=== PATIENT | female | born 1940 | race Caucasian/White ===

== ENCOUNTER 2017-03-09 15:01 | Inpatient (IN) | payer OTHER, MEDICAID ==
[~2017-03-09] VITALS: Ht 167.6 cm; Wt 88.0 kg
[2017-03-09 15:01] VITALS: BP_SYST 144
[2017-03-09] MEDS ORDERED: LEVOFLOXACIN 500 MG/D5W 100 ML IV ONE (15:45)
[2017-03-09] MEDS ORDERED: NS 500 ML IV ONE (15:45)
[2017-03-09 15:57] LABS: BASOPHILS # (AUTO) 0.2 K/uL (0.0-0.2); BASOPHILS % (AUTO) 1.4 % (0.0-2.0); EOSINOPHILS # (AUTO) 0.2 K/uL (0.0-0.4); HEMOGLOBIN 11.9 g/dL (12.0-16.0); LYMPHOCYTES # (AUTO) 0.7 K/uL (1.0-5.5); LYMPHOCYTES % (AUTO) 4.1 % (20.5-51.5); MEAN CORPUSCULAR HEMOGLOBIN 32 pg (27-31); MEAN CORPUSCULAR HGB CONC 33 % (32-36); MEAN CORPUSCULAR VOLUME 96 fL (79.0-98.0); MONOCYTES # (AUTO) 0.2 K/uL (0.0-1.0); MONOCYTES % (AUTO) 0.9 % (1.7-9.3); NEUTROPHILS # (AUTO) 15.7 K/uL (1.8-7.7); NEUTROPHILS % (AUTO) 92.6 % (40.0-70.0); PLATELET COUNT (AUTO) 301 K/uL (130-430); RED BLOOD CELL COUNT(AUTO) 3.75 MIL/uL (4.2-6.2); RED CELL DISTRIBUTION WIDTH 15.8 % (9.0-15.0)
[2017-03-09 16:06] LABS: ANION GAP 7 (5-15); CALCIUM 8.7 mg/dL (8.4-11.0); CHLORIDE 106 mmol/L (98-107); CREATININE 1.38 mg/dL (0.55-1.30); GLUCOSE 135 mg/dL (70-99); POTASSIUM 5.3 mmol/L (3.5-5.1); SODIUM SERUM 141 mmol/L (136-145); UREA NITROGEN, BLOOD 28 mg/dL (8-21)
[2017-03-09 16:12] LABS: INR 1.1 (0.8-1.2); PROTHROMBIN TIME 11.5 SECS (9.5-12.5)
[2017-03-09 16:22] LABS: ALANINE AMINOTRANSFERASE 20 U/L (12-78); ALBUMIN 3.2 g/dL (3.4-4.8); ASPARTATE AMINOTRANSFERASE 31 U/L (10-37); LIPASE 185 U/L (73-393); TOTAL BILIRUBIN 0.9 mg/dL (0.0-1.0); TOTAL PROTEIN, SERUM 7.7 g/dL (6.4-8.3)
[2017-03-09 17:06] LABS: BILIRUBIN,URINE 1+ (NEGATIVE); BLOOD, URINE 3+ (NEGATIVE); CLARITY/URINE CLOUDY (CLEAR); COLOR,URINE RED (YELLOW); GLUCOSE,URINE NEGATIVE (NEGATIVE); KETONES,URINE NEGATIVE (NEGATIVE); LEUKOCYTE ESTERASE ,URINE 2+ (NEGATIVE); NITRITE, URINE POSITIVE (NEGATIVE); PROTEIN URINE 3+ (NEGATIVE)
[2017-03-09 17:11] LABS: BACTERIA,URINE MODERATE /HPF (None Seen); MUCUS,URINE None Seen /LPF (None Seen); RBC,URINE >100 /HPF (0-3); URINE AMORPHOUS URATE 2+ /HPF (None Seen); WBC,URINE >100 /HPF (0-3)
[2017-03-09] MEDS ORDERED: NACL 0.9% 1,000 ML IV ONE ×2 (18:15)
[2017-03-09] MEDS ORDERED: ONDANSETRON HCL 4 MG/2 ML VIAL IVP PRN (18:30)
[2017-03-09] MEDS ORDERED: ACETAMINOPHEN 500 MG TABLET PO PRN (18:30)
[2017-03-09] MEDS ORDERED: FLUT16SP16 NS (18:49)
[2017-03-09] MEDS ORDERED: CARB-60 PO (18:49)
[2017-03-09] MEDS ORDERED: ACET-2165 PO (18:49)
[2017-03-09] MEDS ORDERED: DIGO0.25 PO (18:49)
[2017-03-09] MEDS ORDERED: TRAM50TA92 PO (18:49)
[2017-03-09] MEDS ORDERED: PRAM0.122 PO (18:49)
[2017-03-09] MEDS ORDERED: POLY17PO4 PO (18:49)
[2017-03-09] MEDS ORDERED: MONT5TAB17 PO (18:49)
[2017-03-09] MEDS ORDERED: LORA10CA PO (18:49)
[2017-03-09] MEDS ORDERED: FLUT1DIS3 INH (18:49)
[2017-03-09] MEDS ORDERED: RIVA20TA PO (18:49)
[2017-03-09] MEDS ORDERED: ARIP5TAB10 PO (18:49)
[2017-03-09] MEDS ORDERED: MULT-1089 PO (18:49)
[2017-03-09] MEDS ORDERED: DOCU250C PO (18:49)
[2017-03-09 19:57] VITALS: BP_SYST 118
[2017-03-09] MEDS: NACL 0.9% 1,000 ML IV SCH (20:43)
[2017-03-09] MEDS ORDERED: ACETAMINOPHEN 325 MG TABLET PO PRN (21:30)
[2017-03-09] MEDS ORDERED: POLYETHYLENE GLYCOL 3350, 17 GM/ POWD.PACK PO PRN (21:30)
[2017-03-09] MEDS ORDERED: traMADol HCL HCL 50 MG TABLET (ULTRAM) PO PRN (21:30)
[2017-03-09] MEDS ORDERED: CARBIDOPA/LEVODOPA 10/100 MG TABLET PO ONE (22:00)
[2017-03-09] MEDS: DOCUSATE SODIUM 250 MG CAPSULE PO ONE ×2 (22:00→22:26)
[2017-03-09] MEDS ORDERED: MULTIVITAMINS TAB 1 TABLET PO ONE (22:00)
[2017-03-09] MEDS ORDERED: FLUTICASONE/VILANTEROL 1 EACH BLST.W.DEV INH ONE (22:00)
[2017-03-09] MEDS ORDERED: ARIPiprazole 5 MG TAB PO ONE (22:00)
[2017-03-09] MEDS ORDERED: FLUTICASONE PROPIONATE 50 mCg/SPRAY 16 GM NS ONE (22:00)
[2017-03-10 00:24] VITALS: BP_SYST 125
[2017-03-10 04:14] VITALS: BP_SYST 101
[2017-03-10 07:22] LABS: BASOPHILS % (AUTO) 0.2 % (0.0-2.0); EOSINOPHILS # (AUTO) 0.1 K/uL (0.0-0.4); EOSINOPHILS % (AUTO) 0.3 % (0.0-4.0); HEMATOCRIT 30.1 % (36-48); HEMOGLOBIN 9.9 g/dL (12.0-16.0); LYMPHOCYTES # (AUTO) 1.1 K/uL (1.0-5.5); LYMPHOCYTES % (AUTO) 6.6 % (20.5-51.5); MEAN CORPUSCULAR HEMOGLOBIN 32 pg (27-31); MEAN CORPUSCULAR HGB CONC 33 % (32-36); MEAN CORPUSCULAR VOLUME 96 fL (79.0-98.0); MONOCYTES % (AUTO) 5.8 % (1.7-9.3); NEUTROPHILS # (AUTO) 14.7 K/uL (1.8-7.7); NEUTROPHILS % (AUTO) 87.1 % (40.0-70.0); PLATELET COUNT (AUTO) 235 K/uL (130-430); RED BLOOD CELL COUNT(AUTO) 3.13 MIL/uL (4.2-6.2); RED CELL DISTRIBUTION WIDTH 15.9 % (9.0-15.0)
[2017-03-10 07:27] LABS: ANION GAP 4 (5-15); CALCIUM 8.2 mg/dL (8.4-11.0); CHLORIDE 112 mmol/L (98-107); CREATININE 1.23 mg/dL (0.55-1.30); GLUCOSE 140 mg/dL (70-99); POTASSIUM 4.9 mmol/L (3.5-5.1); SODIUM SERUM 141 mmol/L (136-145); UREA NITROGEN, BLOOD 31 mg/dL (8-21)
[2017-03-10 08:00] VITALS: BP_SYST 131
[2017-03-10 08:44] LABS: WHITE BLOOD COUNT (AUTO) 16.9 K/uL (4.8-10.8)
[2017-03-10] MEDS ORDERED: RIVAROXABAN 10 MG TABLET PO SCH (09:00)
[2017-03-10] MEDS: MULTIVITAMINS TAB 1 TABLET PO SCH (09:12)
[2017-03-10] MEDS: ARIPiprazole 5 MG TAB PO SCH (09:12)
[2017-03-10] MEDS: DOCUSATE SODIUM 250 MG CAPSULE PO SCH ×2 (09:12→21:28)
[2017-03-10] MEDS: FLUTICASONE/VILANTEROL 1 EACH BLST.W.DEV INH SCH (09:12)
[2017-03-10] MEDS: FLUTICASONE PROPIONATE 50 mCg/SPRAY 16 GM NS SCH (09:13)
[2017-03-10] MEDS: CARBIDOPA/LEVODOPA 10/100 MG TABLET PO SCH ×2 (09:13→21:28)
[2017-03-10] MEDS: NACL 0.9% 1,000 ML IV SCH (09:35)
[2017-03-10 12:13] VITALS: BP_SYST 104
[2017-03-10 16:22] VITALS: BP_SYST 101
[2017-03-10] MEDS ORDERED: LEVOFLOXACIN 500 MG/D5W 100 ML IV SCH (17:00)
[2017-03-10 19:40] VITALS: BP_SYST 120
[2017-03-11 00:16] VITALS: BP_SYST 124
[2017-03-11] MEDS: NACL 0.9% 1,000 ML IV SCH ×3 (01:08→22:31)
[2017-03-11 04:00] VITALS: BP_SYST 133
[2017-03-11 08:00] VITALS: BP_SYST 133
[2017-03-11] MEDS: MULTIVITAMINS TAB 1 TABLET PO SCH (09:00)
[2017-03-11] MEDS: DOCUSATE SODIUM 250 MG CAPSULE PO SCH ×2 (09:00→21:00)
[2017-03-11] MEDS: CARBIDOPA/LEVODOPA 10/100 MG TABLET PO SCH ×2 (09:00→22:30)
[2017-03-11] MEDS: ARIPiprazole 5 MG TAB PO SCH (09:00)
[2017-03-11] MEDS: FLUTICASONE/VILANTEROL 1 EACH BLST.W.DEV INH SCH (09:00)
[2017-03-11 11:24] LABS: HEMATOCRIT 29.2 % (36-48); HEMOGLOBIN 9.7 g/dL (12.0-16.0); MEAN CORPUSCULAR HEMOGLOBIN 32 pg (27-31); MEAN CORPUSCULAR HGB CONC 33 % (32-36); MEAN CORPUSCULAR VOLUME 96 fL (79.0-98.0); PLATELET COUNT (AUTO) 212 K/uL (130-430); RED BLOOD CELL COUNT(AUTO) 3.04 MIL/uL (4.2-6.2); RED CELL DISTRIBUTION WIDTH 15.5 % (9.0-15.0); WHITE BLOOD COUNT (AUTO) 13.8 K/uL (4.8-10.8)
[2017-03-11 11:27] LABS: ANION GAP 3 (5-15); CALCIUM 8.7 mg/dL (8.4-11.0); CHLORIDE 112 mmol/L (98-107); CREATININE 1.32 mg/dL (0.55-1.30); GLUCOSE 115 mg/dL (70-99); POTASSIUM 5.2 mmol/L (3.5-5.1); SODIUM SERUM 141 mmol/L (136-145); UREA NITROGEN, BLOOD 35 mg/dL (8-21)
[2017-03-11 12:00] LABS: BAND % (MANUAL) 13 % (0-6); BASOPHILS % (MANUAL) 0 % (0-2); EOSINOPHILS % (MANUAL) 0 % (0-7); LYMPHOCYTES % (MANUAL) 9 % (20-46); MONOCYTES % (MANUAL) 7 % (0-11)
[2017-03-11] MEDS ORDERED: LR 1,000 ML IV ONE (12:30)
[2017-03-11] MEDS ORDERED: fentaNYL CITRATE/PF 100 MCG/2 ML AMP IVP PRN (12:30)
[2017-03-11] MEDS ORDERED: DIPHENHYDRAMINE INJ 50 MG/ML VIAL IVP PRN (12:30)
[2017-03-11] MEDS ORDERED: NALBUPHINE HCL 10 MG/ML AMP IVP PRN (12:30)
[2017-03-11] MEDS ORDERED: NALOXONE HCL 0.4 MG/ML AMP (NARCAN) IVP PRN (12:30)
[2017-03-11] MEDS ORDERED: ePHEDrine sulfate 50 MG/ML VIAL IVP PRN (12:30)
[2017-03-11] MEDS ORDERED: ONDANSETRON HCL 4 MG/2 ML VIAL IVP PRN ×2 (12:30)
[2017-03-11] MEDS ORDERED: IOHEXOL 0 ML IV ONE ×2 (12:44→12:48)
[2017-03-11 12:51] VITALS: BP_SYST 133
[2017-03-11] MEDS: cefTRIAXone 1 GM in D5W 50 ML IV SCH (14:54)
[2017-03-11] MEDS: FLUTICASONE PROPIONATE 50 mCg/SPRAY 16 GM NS SCH (14:57)
[2017-03-11 17:48] VITALS: BP_SYST 126
[2017-03-11 22:44] VITALS: BP_SYST 119
[2017-03-12 04:12] VITALS: BP_SYST 122
[2017-03-12 08:03] LABS: ANION GAP 4 (5-15); CALCIUM 8.8 mg/dL (8.4-11.0); CHLORIDE 110 mmol/L (98-107); CREATININE 1.31 mg/dL (0.55-1.30); GLUCOSE 127 mg/dL (70-99); PHOSPHORUS 3.9 mg/dL (2.7-4.5); SODIUM SERUM 140 mmol/L (136-145); UREA NITROGEN, BLOOD 41 mg/dL (8-21)
[2017-03-12 08:04] LABS: POTASSIUM 5.9 mmol/L (3.5-5.1)
[2017-03-12 08:21] LABS: BASOPHILS # (AUTO) 0.1 K/uL (0.0-0.2); BASOPHILS % (AUTO) 0.7 % (0.0-2.0); EOSINOPHILS % (AUTO) 0.1 % (0.0-4.0); HEMATOCRIT 28.3 % (36-48); HEMOGLOBIN 9.1 g/dL (12.0-16.0); LYMPHOCYTES # (AUTO) 1.1 K/uL (1.0-5.5); LYMPHOCYTES % (AUTO) 10.2 % (20.5-51.5); MEAN CORPUSCULAR HEMOGLOBIN 31 pg (27-31); MEAN CORPUSCULAR HGB CONC 32 % (32-36); MEAN CORPUSCULAR VOLUME 97 fL (79.0-98.0); MONOCYTES # (AUTO) 0.5 K/uL (0.0-1.0); MONOCYTES % (AUTO) 4.7 % (1.7-9.3); NEUTROPHILS # (AUTO) 9.4 K/uL (1.8-7.7); NEUTROPHILS % (AUTO) 84.3 % (40.0-70.0); PLATELET COUNT (AUTO) 206 K/uL (130-430); RED BLOOD CELL COUNT(AUTO) 2.93 MIL/uL (4.2-6.2); RED CELL DISTRIBUTION WIDTH 15.7 % (9.0-15.0); WHITE BLOOD COUNT (AUTO) 11.1 K/uL (4.8-10.8)
[2017-03-12 08:59] VITALS: BP_SYST 120
[2017-03-12] MEDS ORDERED: SODIUM POLYSTYRENE SULFONATE 15 GM/60 ML UDBTL PO ONE (10:00)
[2017-03-12] MEDS: DOCUSATE SODIUM 250 MG CAPSULE PO SCH ×2 (10:48→20:46)
[2017-03-12] MEDS: CARBIDOPA/LEVODOPA 10/100 MG TABLET PO SCH ×2 (10:48→20:46)
[2017-03-12] MEDS: ARIPiprazole 5 MG TAB PO SCH (10:49)
[2017-03-12] MEDS: MULTIVITAMINS TAB 1 TABLET PO SCH (10:49)
[2017-03-12] MEDS: FLUTICASONE/VILANTEROL 1 EACH BLST.W.DEV INH SCH (10:50)
[2017-03-12] MEDS: FLUTICASONE PROPIONATE 50 mCg/SPRAY 16 GM NS SCH (10:50)
[2017-03-12] MEDS: cefTRIAXone 1 GM in D5W 50 ML IV SCH (11:41)
[2017-03-12 12:14] VITALS: BP_SYST 126
[2017-03-12 12:30] VITALS: BP_SYST 128
[2017-03-12 16:20] VITALS: BP_SYST 122
[2017-03-12] MEDS: NACL 0.9% 1,000 ML IV SCH (18:11)
[2017-03-12 20:00] VITALS: BP_SYST 125
[2017-03-13 00:11] VITALS: BP_SYST 114
[2017-03-13] MEDS ORDERED: VANCOMYCIN HCL 1000 MG/VIAL IV ONE (01:53)
[2017-03-13] MEDS ORDERED: VANCOMYCIN HCL 500 MG/VIAL IV ONE (01:54)
[2017-03-13] MEDS ORDERED: VANCOMYCIN HCL 1,250 MG in NS 250 ML IV ONE (02:00)
[2017-03-13] MEDS: NACL 0.9% 1,000 ML IV SCH ×2 (02:38→20:05)
[2017-03-13 05:57] VITALS: BP_SYST 129
[2017-03-13 08:05] VITALS: BP_SYST 116
[2017-03-13 08:10] LABS: BASOPHILS # (AUTO) 0.2 K/uL (0.0-0.2); BASOPHILS % (AUTO) 1.7 % (0.0-2.0); EOSINOPHILS # (AUTO) 0.1 K/uL (0.0-0.4); EOSINOPHILS % (AUTO) 0.8 % (0.0-4.0); HEMATOCRIT 28.5 % (36-48); HEMOGLOBIN 9.2 g/dL (12.0-16.0); LYMPHOCYTES # (AUTO) 1.2 K/uL (1.0-5.5); LYMPHOCYTES % (AUTO) 10.6 % (20.5-51.5); MEAN CORPUSCULAR HEMOGLOBIN 31 pg (27-31); MEAN CORPUSCULAR HGB CONC 32 % (32-36); MEAN CORPUSCULAR VOLUME 97 fL (79.0-98.0); MONOCYTES # (AUTO) 0.6 K/uL (0.0-1.0); MONOCYTES % (AUTO) 5.8 % (1.7-9.3); NEUTROPHILS # (AUTO) 8.8 K/uL (1.8-7.7); NEUTROPHILS % (AUTO) 81.1 % (40.0-70.0); PLATELET COUNT (AUTO) 236 K/uL (130-430); RED BLOOD CELL COUNT(AUTO) 2.95 MIL/uL (4.2-6.2); RED CELL DISTRIBUTION WIDTH 15.4 % (9.0-15.0); WHITE BLOOD COUNT (AUTO) 10.9 K/uL (4.8-10.8)
[2017-03-13 08:20] LABS: ANION GAP 3 (5-15); CALCIUM 8.1 mg/dL (8.4-11.0); CHLORIDE 107 mmol/L (98-107); CREATININE 1.29 mg/dL (0.55-1.30); GLUCOSE 97 mg/dL (70-99); POTASSIUM 4.2 mmol/L (3.5-5.1); SODIUM SERUM 140 mmol/L (136-145); UREA NITROGEN, BLOOD 44 mg/dL (8-21)
[2017-03-13] MEDS: MULTIVITAMINS TAB 1 TABLET PO SCH (10:28)
[2017-03-13] MEDS: FLUTICASONE PROPIONATE 50 mCg/SPRAY 16 GM NS SCH (10:28)
[2017-03-13] MEDS: ARIPiprazole 5 MG TAB PO SCH (10:28)
[2017-03-13] MEDS: FLUTICASONE/VILANTEROL 1 EACH BLST.W.DEV INH SCH (10:28)
[2017-03-13] MEDS: CARBIDOPA/LEVODOPA 10/100 MG TABLET PO SCH ×2 (10:29→20:05)
[2017-03-13] MEDS: DOCUSATE SODIUM 250 MG CAPSULE PO SCH ×2 (10:29→20:05)
[2017-03-13] MEDS: cefTRIAXone 1 GM in D5W 50 ML IV SCH (12:05)
[2017-03-13 12:54] VITALS: BP_SYST 105
[2017-03-13 16:09] VITALS: BP_SYST 126
[2017-03-13 20:02] VITALS: BP_SYST 119
[2017-03-14 01:03] VITALS: BP_SYST 126
[2017-03-14] MEDS ORDERED: VANCOMYCIN HCL 1,000 MG in NS 250 ML IV SCH (02:00)
[2017-03-14 05:30] VITALS: BP_SYST 130
[2017-03-14 08:44] VITALS: BP_SYST 117
[2017-03-14] MEDS: CARBIDOPA/LEVODOPA 10/100 MG TABLET PO SCH (10:04)
[2017-03-14] MEDS: ARIPiprazole 5 MG TAB PO SCH (10:04)
[2017-03-14] MEDS: MULTIVITAMINS TAB 1 TABLET PO SCH (10:04)
[2017-03-14] MEDS: DOCUSATE SODIUM 250 MG CAPSULE PO SCH (10:04)
[2017-03-14] MEDS: FLUTICASONE PROPIONATE 50 mCg/SPRAY 16 GM NS SCH (10:04)
[2017-03-14] MEDS: FLUTICASONE/VILANTEROL 1 EACH BLST.W.DEV INH SCH (10:05)
[2017-03-14 12:25] VITALS: BP_SYST 125
[2017-03-14] MEDS: cefTRIAXone 1 GM in D5W 50 ML IV SCH (12:58)
[2017-03-14 15:12] VITALS: BP_SYST 125
== END 2017-03-14 15:40 | DRG 872 ==
LOC: SED 15:01 → STU 18:31 → SMU 19:38 → STU 19:54 → SMU 03-11 19:18
PROVIDERS: ADMIT Family Medicine; ATTEND Family Medicine
PROC: 0T778DZ Dilation of Left Ureter with Intraluminal Device, Via Natural or Artificial Opening Endoscopic (ICD-10-PCS; principal; 2017-03-11 11:00)
DX: A41.9 Sepsis, unspecified organism (principal); N13.30 Unspecified hydronephrosis; N12 Tubulo-interstitial nephritis, not specified as acute or chronic; I48.2 Chronic atrial fibrillation; G20 Parkinson's disease; F29 Unspecified psychosis not due to a substance or known physiological condition; Z79.01 Long term (current) use of anticoagulants; E87.5 Hyperkalemia; J44.9 Chronic obstructive pulmonary disease, unspecified; N20.0 Calculus of kidney; R31.0 Gross hematuria; Z74.01 Bed confinement status; Z88.0 Allergy status to penicillin; Z90.710 Acquired absence of both cervix and uterus; F02.80 Dementia in other diseases classified elsewhere, unspecified severity, without behavioral disturbance, psychotic disturbance, mood disturbance, and anxiety; Z79.899 Other long term (current) drug therapy
CPT/HCPCS: 36415; 71010; 76000; 80048; 80053; 81000-TC; 83605; 83690-TC; 83735-TC; 84100-TC; 85007; 85025; 85027; 85610-TC; 87040-TC; 87081; 87086; 87186-TC; 93005; 96361; 96365; 99285; C1758; C1769; C2625; J0696; J1956; J3370; J7030; J7040; J7050; J7060; Q9967

== ENCOUNTER 2017-09-30 09:31 | Outpatient (CLI) | payer OTHER, MEDICAID ==
[~2017-09-30 09:31] MED LIST: ACET-2165 PO; ARIP5TAB10 PO; CARB-60 PO; DIGO0.25 PO; DOCU250C PO; FLUT16SP16 NS; FLUT1DIS3 INH; LORA10CA PO; MONT5TAB17 PO; MULT-1089 PO; POLY17PO4 PO; PRAM0.122 PO; RIVA20TA PO; TRAM50TA92 PO
== END 2017-09-30 17:18 | disposition home or self-care (01) ==
LOC: SCT 09:31
PROVIDERS: ATTEND Family Medicine
DX: N20.0 Calculus of kidney (principal); I51.7 Cardiomegaly; I70.0 Atherosclerosis of aorta; K57.90 Diverticulosis of intestine, part unspecified, without perforation or abscess without bleeding; Z90.49 Acquired absence of other specified parts of digestive tract

== ENCOUNTER 2018-06-06 08:30 | Outpatient (CLI) | payer OTHER, MEDICAID ==
[~2018-06-06 08:30] MED LIST changes: -DOCU250C PO; +DOCU250C14 PO
== END 2018-06-06 20:20 | disposition home or self-care (01) ==
LOC: SCT 08:30
PROVIDERS: ATTEND Family Medicine
DX: K57.90 Diverticulosis of intestine, part unspecified, without perforation or abscess without bleeding (principal); N20.0 Calculus of kidney; Z90.49 Acquired absence of other specified parts of digestive tract

== ENCOUNTER 2018-11-11 14:24 | Inpatient (IN) | payer OTHER, MEDICAID ==
[~2018-11-11] VITALS: Ht 170.2 cm; Wt 102.1 kg
[2018-11-11] VITALS (9 sets, daily range): BP systolic 96–159
[2018-11-11] MEDS ORDERED: NACL 0.9% 1,000 ML IV ONE (14:35)
[2018-11-11] MEDS ORDERED: ALBUTEROL SULFATE 0.083% 2.5 MG/3 ML VIAL.NEB IH ONE ×2 (14:45→16:00)
[2018-11-11] MEDS ORDERED: IPRATROPIUM BROM 0.5 MG/2.5 ML VIAL.NEB (ATROVENT) IH ONE ×2 (14:45→16:00)
[2018-11-11] MEDS ORDERED: NS 1000 ML IV.SOLN IV ONE (14:45)
[2018-11-11] MEDS ORDERED: methylPREDNISolone SOD SUCC/PF 62.5 MG/ML VIAL IVP ONE (14:45)
[2018-11-11 15:24] LABS: CALCIUM 8.7 mg/dL (8.4-11.0); CREATININE 2.27 mg/dL (0.55-1.30); GLUCOSE 144 mg/dL (70-99); POTASSIUM 5.5 mmol/L (3.5-5.1); SODIUM SERUM 144 mmol/L (136-145); UREA NITROGEN, BLOOD 66 mg/dL (8-21)
[2018-11-11 15:26] LABS: INR 1.1 (0.8-1.2); PROTHROMBIN TIME 11.6 SECS (9.5-12.5)
[2018-11-11 15:37] LABS: ALANINE AMINOTRANSFERASE 7 U/L (12-78); ALBUMIN 2.5 g/dL (3.4-4.8); AMYLASE 24 U/L (0-100); ASPARTATE AMINOTRANSFERASE 25 U/L (10-37); LIPASE 95 U/L (73-393); TOTAL BILIRUBIN 0.5 mg/dL (0.0-1.0)
[2018-11-11 15:45] LABS: ANION GAP 3 (5-15); CHLORIDE 105 mmol/L (98-107)
[2018-11-11 15:46] LABS: EOSINOPHILS % (AUTO) 0.6 % (0.0-4.0); HEMATOCRIT 27.7 % (36-48); HEMOGLOBIN 8.2 g/dL (12.0-16.0); LYMPHOCYTES % (AUTO) 14.8 % (20.5-51.5); MEAN CORPUSCULAR HEMOGLOBIN 32 pg (27-31); MEAN CORPUSCULAR HGB CONC 30 % (32-36); MEAN CORPUSCULAR VOLUME 107 fL (79.0-98.0); MONOCYTES % (AUTO) 4.9 % (1.7-9.3); NEUTROPHILS % (AUTO) 78.7 % (40.0-70.0); PLATELET COUNT (AUTO) 160 K/uL (130-430); RED BLOOD CELL COUNT(AUTO) 2.59 MIL/uL (4.2-6.2); RED CELL DISTRIBUTION WIDTH 25.2 % (9.0-15.0); WHITE BLOOD COUNT (AUTO) 10.1 K/uL (4.8-10.8)
[2018-11-11 15:47] LABS: BASOPHILS # (AUTO) 0.1 K/uL (0.0-0.2); EOSINOPHILS # (AUTO) 0.1 K/uL (0.0-0.4); LYMPHOCYTES # (AUTO) 1.5 K/uL (1.0-5.5); MONOCYTES # (AUTO) 0.5 K/uL (0.0-1.0); NEUTROPHILS # (AUTO) 7.9 K/uL (1.8-7.7)
[2018-11-11] MEDS ORDERED: HYDR-4272 PO (16:27)
[2018-11-11] MEDS ORDERED: NA P133E41 RC (16:27)
[2018-11-11] MEDS ORDERED: DIGO-31 PO (16:27)
[2018-11-11] MEDS ORDERED: BISA10SU61 RC (16:27)
[2018-11-11] MEDS ORDERED: NITSL SL (16:27)
[2018-11-11] MEDS ORDERED: ATOR40TA68 PO (16:27)
[2018-11-11] MEDS ORDERED: SER25 PO (16:27)
[2018-11-11] MEDS ORDERED: DOCU-144 PO (16:27)
[2018-11-11] MEDS ORDERED: IPRA3AMP9 INH (16:27)
[2018-11-11] MEDS ORDERED: GUAI100S14 PO (16:27)
[2018-11-11] MEDS ORDERED: MEGE400O4 PO (16:27)
[2018-11-11] MEDS ORDERED: SENN8.6T19 PO (16:27)
[2018-11-11] MEDS ORDERED: ASPIRIN 300 MG/SUPP.RECT SUPP RC ONE (16:45)
[2018-11-11] MEDS ORDERED: FUROSEMIDE 40 MG/4 ML VIAL IVP ONE (16:45)
[2018-11-11] MEDS ORDERED: IPRATROPIUM/ALBUTEROL SULFATE 3 ML AMPUL.NEB (DUONEB) INH PRN (16:45)
[2018-11-11] MEDS ORDERED: FUROSEMIDE 100 MG/10 ML VIAL IVP ONE (16:45)
[2018-11-11] MEDS: LEVOFLOXACIN 250 MG/D5W 50 ML IV SCH (17:15)
[2018-11-11 18:45] LABS: BILIRUBIN,URINE NEGATIVE (NEGATIVE); BLOOD, URINE 3+ (NEGATIVE); CLARITY/URINE HAZY (CLEAR); COLOR,URINE YELLOW (YELLOW); GLUCOSE,URINE NEGATIVE (NEGATIVE); KETONES,URINE NEGATIVE (NEGATIVE); LEUKOCYTE ESTERASE ,URINE 3+ (NEGATIVE); NITRITE, URINE NEGATIVE (NEGATIVE); PH,URINE 5.5 (5.0-8.0); PROTEIN URINE 2+ (NEGATIVE); UROBILINOGEN,URINE 0.2 (0.2-1.0)
[2018-11-11 18:55] LABS: BACTERIA,URINE MANY /HPF (None Seen); WBC,URINE >100 /HPF (0-3)
[2018-11-11 18:56] LABS: MUCUS,URINE None Seen /LPF (None Seen)
[2018-11-11] MEDS: IPRATROPIUM/ALBUTEROL SULFATE 3 ML AMPUL.NEB (DUONEB) INH SCH (20:27)
[2018-11-11] MEDS ORDERED: FUROSEMIDE 100 MG/10 ML VIAL ONE (20:35)
[2018-11-11] MEDS: FUROSEMIDE 100 MG in D5W 90 ML IV SCH (20:53)
[2018-11-12] VITALS (23 sets, daily range): BP systolic 90–149
[2018-11-12] MEDS: IPRATROPIUM/ALBUTEROL SULFATE 3 ML AMPUL.NEB (DUONEB) INH SCH ×4 (01:00→19:36)
[2018-11-12 07:28] LABS: ANION GAP 6 (5-15); CALCIUM 9.2 mg/dL (8.4-11.0); CHLORIDE 104 mmol/L (98-107); GLUCOSE 112 mg/dL (70-99); POTASSIUM 5.7 mmol/L (3.5-5.1); SODIUM SERUM 144 mmol/L (136-145); UREA NITROGEN, BLOOD 69 mg/dL (8-21)
[2018-11-12 07:38] LABS: ALANINE AMINOTRANSFERASE 6 U/L (12-78); ALBUMIN 2.5 g/dL (3.4-4.8); ASPARTATE AMINOTRANSFERASE 23 U/L (10-37); TOTAL BILIRUBIN 0.7 mg/dL (0.0-1.0)
[2018-11-12] MEDS ORDERED: SODIUM POLYSTYRENE SULFONATE 15 GM/60 ML UDBTL PO ONE (08:30)
[2018-11-12] MEDS ORDERED: SODIUM POLYSTYRENE SULFONATE 15 GM/60 ML UDBTL ONE (08:40)
[2018-11-12] MEDS ORDERED: FUROSEMIDE 40 MG/4 ML VIAL IVP SCH (09:00)
[2018-11-12 10:00] LABS: HEMATOCRIT 25.8 % (36-48); HEMOGLOBIN 7.8 g/dL (12.0-16.0); RED BLOOD CELL COUNT(AUTO) 2.45 MIL/uL (4.2-6.2); WHITE BLOOD COUNT (AUTO) 6.8 K/uL (4.8-10.8)
[2018-11-12 10:01] LABS: BASOPHILS % (AUTO) 0.2 % (0.0-2.0); LYMPHOCYTES # (AUTO) 0.1 K/uL (1.0-5.5); LYMPHOCYTES % (AUTO) 1.3 % (20.5-51.5); MEAN CORPUSCULAR HEMOGLOBIN 32 pg (27-31); MEAN CORPUSCULAR HGB CONC 30 % (32-36); MEAN CORPUSCULAR VOLUME 105 fL (79.0-98.0); MONOCYTES # (AUTO) 0.1 K/uL (0.0-1.0); MONOCYTES % (AUTO) 0.9 % (1.7-9.3); NEUTROPHILS # (AUTO) 6.7 K/uL (1.8-7.7); NEUTROPHILS % (AUTO) 97.6 % (40.0-70.0); PLATELET COUNT (AUTO) 149 K/uL (130-430)
[2018-11-12 10:02] LABS: RED CELL DISTRIBUTION WIDTH 24.7 % (9.0-15.0)
[2018-11-12] MEDS ORDERED: LEVOTHYROXINE SODIUM 0.1 MG TABLET PO ONE (11:15)
[2018-11-12] MEDS ORDERED: HEPARIN SODIUM,PORCINE 5000 UNITS/ML VIAL SUBCUT SCH (14:00)
[2018-11-12] MEDS: LEVOFLOXACIN 250 MG/D5W 50 ML IV SCH (16:59)
[2018-11-12] MEDS ORDERED: DIGOXIN 0.5 MG/2 ML AMP IVP ONE ×2 (18:15→22:00)
[2018-11-12] MEDS: APIXABAN 2.5 MG TABLET PO SCH (20:37)
[2018-11-13] VITALS (23 sets, daily range): BP systolic 92–156
[2018-11-13] MEDS: IPRATROPIUM/ALBUTEROL SULFATE 3 ML AMPUL.NEB (DUONEB) INH SCH ×4 (00:56→19:45)
[2018-11-13] MEDS: FUROSEMIDE 100 MG in D5W 90 ML IV SCH (01:25)
[2018-11-13] MEDS: LEVOTHYROXINE SODIUM 0.1 MG TABLET PO SCH (06:42)
[2018-11-13 07:23] LABS: ANION GAP 3 (5-15); CALCIUM 8.7 mg/dL (8.4-11.0); CHLORIDE 106 mmol/L (98-107); CREATININE 2.72 mg/dL (0.55-1.30); GLUCOSE 105 mg/dL (70-99); POTASSIUM 5.1 mmol/L (3.5-5.1); SODIUM SERUM 147 mmol/L (136-145); UREA NITROGEN, BLOOD 80 mg/dL (8-21)
[2018-11-13 07:34] LABS: ALANINE AMINOTRANSFERASE 7 U/L (12-78); ALBUMIN 2.3 g/dL (3.4-4.8); ASPARTATE AMINOTRANSFERASE 23 U/L (10-37); TOTAL BILIRUBIN 0.5 mg/dL (0.0-1.0)
[2018-11-13 08:19] LABS: CHOLESTEROL 76 mg/dL (<200); HDL CHOLESTEROL 41 mg/dL (>55); LDL CHOLESTEROL 27 mg/dL (<100); TRIGLYCERIDES 56 mg/dL (30-150)
[2018-11-13 08:23] LABS: TOTAL IRON BIND. CAPACITY 198 ug/dL (250-450)
[2018-11-13] MEDS: APIXABAN 2.5 MG TABLET PO SCH ×2 (09:00→21:00)
[2018-11-13 09:30] LABS: HEMATOCRIT 23.9 % (36-48); HEMOGLOBIN 7.5 g/dL (12.0-16.0); MEAN CORPUSCULAR HEMOGLOBIN 32 pg (27-31); MEAN CORPUSCULAR HGB CONC 31 % (32-36); MEAN CORPUSCULAR VOLUME 103 fL (79.0-98.0); RED BLOOD CELL COUNT(AUTO) 2.32 MIL/uL (4.2-6.2); WHITE BLOOD COUNT (AUTO) 5.5 K/uL (4.8-10.8)
[2018-11-13 09:31] LABS: BASOPHILS % (AUTO) 0.5 % (0.0-2.0); EOSINOPHILS % (AUTO) 0.6 % (0.0-4.0); LYMPHOCYTES # (AUTO) 0.3 K/uL (1.0-5.5); LYMPHOCYTES % (AUTO) 5.2 % (20.5-51.5); MONOCYTES # (AUTO) 0.4 K/uL (0.0-1.0); MONOCYTES % (AUTO) 6.5 % (1.7-9.3); NEUTROPHILS # (AUTO) 4.8 K/uL (1.8-7.7); PLATELET COUNT (AUTO) 192 K/uL (130-430)
[2018-11-13] MEDS: DILTIAZEM HCL 120 MG CAP.SR.24H PO SCH (09:31)
[2018-11-13] MEDS: EPOETIN ALFA 10,000 UNITS/ML VIAL SUBCUT SCH (10:15)
[2018-11-13 12:12] LABS: NEUTROPHILS % (AUTO) 87.2 % (40.0-70.0); RED CELL DISTRIBUTION WIDTH 25.2 % (9.0-15.0)
[2018-11-13] MEDS: LEVOFLOXACIN 250 MG/D5W 50 ML IV SCH (16:41)
[2018-11-13] MEDS ORDERED: D5/0.45 NS 1,000 ML IV SCH (18:45)
[2018-11-13] MEDS: ALBUMIN HUMAN 25% 50 ML IV SCH (20:31)
[2018-11-13] MEDS ORDERED: ALBUMIN HUMAN 25% 50 ML IV ONE (20:36)
[2018-11-14] VITALS (21 sets, daily range): BP systolic 98–156
[2018-11-14] MEDS: IPRATROPIUM/ALBUTEROL SULFATE 3 ML AMPUL.NEB (DUONEB) INH SCH ×4 (00:56→20:44)
[2018-11-14] MEDS: ALBUMIN HUMAN 25% 50 ML IV SCH ×2 (03:20→11:05)
[2018-11-14] MEDS: FUROSEMIDE 100 MG in D5W 90 ML IV SCH ×2 (03:26→17:59)
[2018-11-14] MEDS: LEVOTHYROXINE SODIUM 0.1 MG TABLET PO SCH (06:26)
[2018-11-14 07:41] LABS: ALANINE AMINOTRANSFERASE 13 U/L (12-78); ANION GAP 3 (5-15); ASPARTATE AMINOTRANSFERASE 23 U/L (10-37); CALCIUM 9.1 mg/dL (8.4-11.0); CHLORIDE 104 mmol/L (98-107); CREATININE 2.94 mg/dL (0.55-1.30); GLUCOSE 109 mg/dL (70-99); POTASSIUM 4.4 mmol/L (3.5-5.1); SODIUM SERUM 143 mmol/L (136-145); TOTAL BILIRUBIN 0.8 mg/dL (0.0-1.0); UREA NITROGEN, BLOOD 88 mg/dL (8-21)
[2018-11-14] MEDS: APIXABAN 2.5 MG TABLET PO SCH ×3 (09:00→21:00)
[2018-11-14] MEDS: DILTIAZEM HCL 120 MG CAP.SR.24H PO SCH (09:25)
[2018-11-14] MEDS ORDERED: BALSAM PERU/CASTOR OIL 60 GM OINT...G. TP ONE (15:30)
[2018-11-14] MEDS: LEVOFLOXACIN 250 MG/D5W 50 ML IV SCH (17:48)
[2018-11-15 00:57] VITALS: BP_SYST 133
[2018-11-15] MEDS: IPRATROPIUM/ALBUTEROL SULFATE 3 ML AMPUL.NEB (DUONEB) INH SCH ×4 (01:14→19:35)
[2018-11-15] MEDS: LEVOTHYROXINE SODIUM 0.1 MG TABLET PO SCH (06:10)
[2018-11-15 07:34] LABS: ALANINE AMINOTRANSFERASE 9 U/L (12-78); ALBUMIN 2.7 g/dL (3.4-4.8); ASPARTATE AMINOTRANSFERASE 23 U/L (10-37); CALCIUM 8.7 mg/dL (8.4-11.0); CREATININE 2.94 mg/dL (0.55-1.30); GLUCOSE 96 mg/dL (70-99); POTASSIUM 3.9 mmol/L (3.5-5.1); SODIUM SERUM 144 mmol/L (136-145); TOTAL BILIRUBIN 0.8 mg/dL (0.0-1.0); UREA NITROGEN, BLOOD 90 mg/dL (8-21)
[2018-11-15 07:46] LABS: CHLORIDE 105 mmol/L (98-107)
[2018-11-15 07:58] LABS: ANION GAP < 3 (5-15)
[2018-11-15 08:00] VITALS: BP_SYST 129
[2018-11-15 08:49] LABS: HEMATOCRIT 24.9 % (36-48); HEMOGLOBIN 7.8 g/dL (12.0-16.0); MEAN CORPUSCULAR HEMOGLOBIN 32 pg (27-31); MEAN CORPUSCULAR HGB CONC 31 % (32-36); MEAN CORPUSCULAR VOLUME 103 fL (79.0-98.0); RED BLOOD CELL COUNT(AUTO) 2.42 MIL/uL (4.2-6.2); RED CELL DISTRIBUTION WIDTH 24.8 % (9.0-15.0); WHITE BLOOD COUNT (AUTO) 5.5 K/uL (4.8-10.8)
[2018-11-15 08:50] LABS: BASOPHILS % (AUTO) 0.4 % (0.0-2.0); EOSINOPHILS % (AUTO) 0.6 % (0.0-4.0); LYMPHOCYTES # (AUTO) 0.4 K/uL (1.0-5.5); LYMPHOCYTES % (AUTO) 7.9 % (20.5-51.5); MONOCYTES # (AUTO) 0.4 K/uL (0.0-1.0); MONOCYTES % (AUTO) 7.8 % (1.7-9.3); NEUTROPHILS # (AUTO) 4.5 K/uL (1.8-7.7); NEUTROPHILS % (AUTO) 83.3 % (40.0-70.0); PLATELET COUNT (AUTO) 220 K/uL (130-430)
[2018-11-15] MEDS ORDERED: COMMUNICATION ORDER XX ONE (10:00)
[2018-11-15] MEDS: EPOETIN ALFA 10,000 UNITS/ML VIAL SUBCUT SCH (10:20)
[2018-11-15] MEDS: APIXABAN 2.5 MG TABLET PO SCH ×2 (10:20→21:00)
[2018-11-15] MEDS: DILTIAZEM HCL 120 MG CAP.SR.24H PO SCH (10:26)
[2018-11-15] MEDS: BALSAM PERU/CASTOR OIL 60 GM OINT...G. TP SCH (10:27)
[2018-11-15] MEDS ORDERED: MEROPENEM 500 MG IVPB PREMIX 50 ML IV ONE (10:30)
[2018-11-15] MEDS: MEROPENEM 500 MG in NS 50 ML IV SCH ×2 (11:21→22:25)
[2018-11-15 12:00] VITALS: BP_SYST 119
[2018-11-15 16:00] VITALS: BP_SYST 124
[2018-11-15] MEDS: LEVOFLOXACIN 250 MG/D5W 50 ML IV SCH (17:38)
[2018-11-15] MEDS: FUROSEMIDE 100 MG in D5W 90 ML IV SCH (17:42)
[2018-11-15 20:00] VITALS: BP_SYST 118
[2018-11-15] MEDS ORDERED: MEROPENEM 500 MG IVPB PREMIX 50 ML IV SCH (21:00)
[2018-11-16 00:39] VITALS: BP_SYST 122
[2018-11-16] MEDS: IPRATROPIUM/ALBUTEROL SULFATE 3 ML AMPUL.NEB (DUONEB) INH SCH ×3 (00:40→13:33)
[2018-11-16] MEDS: LEVOTHYROXINE SODIUM 0.1 MG TABLET PO SCH (06:24)
[2018-11-16 07:49] VITALS: BP_SYST 113
[2018-11-16] MEDS ORDERED: METOLAZONE 5 MG TABLET PO ONE (08:00)
[2018-11-16] MEDS: MEROPENEM 500 MG in NS 50 ML IV SCH (08:30)
[2018-11-16] MEDS: DILTIAZEM HCL 120 MG CAP.SR.24H PO SCH (08:32)
[2018-11-16] MEDS: APIXABAN 2.5 MG TABLET PO SCH (08:33)
[2018-11-16] MEDS: BALSAM PERU/CASTOR OIL 60 GM OINT...G. TP SCH (08:34)
[2018-11-16 13:17] VITALS: BP_SYST 103
[2018-11-16] MEDS: FUROSEMIDE 100 MG in D5W 90 ML IV SCH (16:14)
[2018-11-16] MEDS: LEVOFLOXACIN 250 MG/D5W 50 ML IV SCH (17:36)
[2018-11-16 18:07] VITALS: BP_SYST 105
[2018-11-16 18:12] VITALS: BP_SYST 104
== END 2018-11-16 19:18 | DRG 871 ==
LOC: SED 14:24 → SIC 17:01 → STU 11-14 19:14
PROVIDERS: ADMIT Family Medicine; ATTEND Family Medicine
PROC: 5A09357 Assistance with Respiratory Ventilation, Less than 24 Consecutive Hours, Continuous Positive Airway Pressure (ICD-10-PCS; 2018-11-11)
PROC: 02HV33Z Insertion of Infusion Device into Superior Vena Cava, Percutaneous Approach (ICD-10-PCS; principal; 2018-11-13)
DX: A41.9 Sepsis, unspecified organism (principal); J18.1 Lobar pneumonia, unspecified organism; J96.01 Acute respiratory failure with hypoxia; J96.02 Acute respiratory failure with hypercapnia; N17.9 Acute kidney failure, unspecified; J44.1 Chronic obstructive pulmonary disease with (acute) exacerbation; J44.0 Chronic obstructive pulmonary disease with (acute) lower respiratory infection; I50.40 Unspecified combined systolic (congestive) and diastolic (congestive) heart failure; E87.2 Acidosis; I24.8 Other forms of acute ischemic heart disease; N39.0 Urinary tract infection, site not specified; N18.4 Chronic kidney disease, stage 4 (severe); G20 Parkinson's disease; F20.9 Schizophrenia, unspecified; D64.9 Anemia, unspecified; E03.9 Hypothyroidism, unspecified; E87.5 Hyperkalemia; F03.90 Unspecified dementia, unspecified severity, without behavioral disturbance, psychotic disturbance, mood disturbance, and anxiety; I48.2 Chronic atrial fibrillation; I27.20 Pulmonary hypertension, unspecified; I50.810 Right heart failure, unspecified; I27.81 Cor pulmonale (chronic); Z66 Do not resuscitate; Z74.01 Bed confinement status; Z79.01 Long term (current) use of anticoagulants; Z87.891 Personal history of nicotine dependence; Z79.899 Other long term (current) drug therapy; Z88.0 Allergy status to penicillin
CPT/HCPCS: 36415; 36600; 71045; 80053; 80061; 81000-TC; 82150-TC; 82550-TC; 82803-TC; 83540-TC; 83550-TC; 83605; 83690-TC; 83880; 84443-TC; 84484; 85025; 85610-TC; 85730-TC; 87040-TC; 87081; 87086; 87186-TC; 93005; 93306; 94640; 94660; 94760; 96361; 96365; 96375; 99285; C1751; G0378; J0885; J1160; J1644; J1940; J1956; J2185; J2930; J7060; J7613; J7620; P9046